=== PATIENT | male | born 1995 | race Caucasian/White ===

== ENCOUNTER 2018-03-06 15:44 | Emergency (ER) | payer OTHER ==
[2018-03-06] MEDS: MORPHINE 10 MG/ML 1ML VIAL (J2270) IM (16:40)
== END 2018-03-06 17:46 | disposition home or self-care (01) ==
LOC: M ED 15:44
DX: S16.1XXA Strain of muscle, fascia and tendon at neck level, initial encounter (principal); S29.012A Strain of muscle and tendon of back wall of thorax, initial encounter; S09.90XA Unspecified injury of head, initial encounter; V86.92XA Unspecified occupant of snowmobile injured in nontraffic accident, initial encounter; Y92.89 Other specified places as the place of occurrence of the external cause
CPT/HCPCS: J2270